=== PATIENT | male | born 1975 | race Two or more races ===

== ENCOUNTER 2022-09-28 06:00 | Day surgery (SDC) | payer OTHER ==
[~2022-09-28] VITALS: Ht 172.7 cm; Wt 83.9 kg
[~2022-09-28 06:00] MED LIST: DITROPAN XL10 MG PO; TAMS0.4C PO
== END 2022-09-28 19:10 | disposition home or self-care (01) ==
LOC: CIR.AMB 06:00
PROVIDERS: ATTEND Orthopaedic Surgery Hand Surgery
DX: S42.022A Displaced fracture of shaft of left clavicle, initial encounter for closed fracture (principal); Z20.822 Contact with and (suspected) exposure to COVID-19; E11.9 Type 2 diabetes mellitus without complications; E78.00 Pure hypercholesterolemia, unspecified; I10 Essential (primary) hypertension